=== PATIENT | female | born 1940 | race Caucasian/White ===

== ENCOUNTER 2018-10-12 21:22 | Observation (INO) | payer MEDICARE ==
[2018-10-12] MEDS ORDERED: Nitroglycerin 2% Ointment 1 INCH/1 GM Packet ONE (21:50)
[2018-10-12 22:04] LABS: #Basophils 0.1 thou/uL (0.0-0.2); #Eosinphils 0.2 thou/uL (0.0-0.7); #Lymphocytes 2.7 thou/uL (1.20-3.40); #Monocytes 0.6 thou/uL (0.11-0.59); #Neutrophils 4.5 thou/uL (1.40-6.50); %Basophils 1.7 % (0.0-1.0); %Lymphocytes 33.1 % (21.0-51.0); %Monocytes 7.9 % (0.0-10.0); %Neutrophils 55.4 % (42.0-75.0); Hemoglobin 15.1 g/dL (12.0-16.0); Mean Corpuscular HGB CONC 33.2 g/dL (32.0-36.0); Mean Corpuscular Hemoglobin 31.8 pg (27.0-31.0); Mean Corpuscular Volume 95.9 fL (78.0-98.0); Mean Platelet Volume 6.5 fL (7.4-10.4); Platelet Count 178 thou/uL (130-400); RBC Distribution Width 12.1 % (11.5-14.5); Red Blood Cell (RBC) Count 4.75 mill/uL (4.20-5.40); White Blood Cell (WBC) Count 8.2 thou/uL (4.8-10.8)
--- NOTE | 2018-10-12 22:17 | RAD ---
RADIOGRAPH CHEST 1 VIEW: 10/12/18 HISTORY: 78-year-old female with acute chest pain. FINDINGS: The thoracic aorta is tortuous and ectatic. There is no evidence of air space density, pneumothorax, or pulmonary edema. The lateral costophrenic angles are sharp. There is no cardiomegaly. IMPRESSION: 1) No acute pulmonary findings. 2) Ectasia of thoracic aorta. miya [] POS: ORLY
[2018-10-12 22:23] LABS: CKMB 0.9 ng/mL (0-6.6)
[2018-10-12 22:53] LABS: Carbon Dioxide 25 mmol/L (23-31); Chloride 107 mmol/L (98-107); Potassium 3.7 mmol/L (3.5-5.1); Sodium 142 mmol/L (136-145)
[2018-10-12 22:54] LABS: Anion Gap 14 mmol/L (10-20); BUN (Urea Nitrogen) 15 mg/dL (9.8-20.1); Calc. Creatinine Clearance 0 mL/min (70-130)
[2018-10-12 22:55] LABS: ALT (SGPT) 15 U/L (8-55); AST (SGOT) 15 U/L (5-34); Albumin 4.2 g/dL (3.4-4.8); Alkaline Phosphatase 62 U/L (40-150); Bilirubin, Total 0.7 mg/dL (0.2-1.2); Calcium 9.2 mg/dL (7.8-10.44); Estimated GFR-MDRD 61; Globulin 2.8 g/dL (2.4-3.5); Glucose 97 mg/dL (83-110)
[2018-10-13 01:42] LABS: Troponin I Less than 0.010 ng/mL (< 0.028)
[2018-10-13 04:35] LABS: Troponin I 0.015 ng/mL (< 0.028)
[2018-10-13] MEDS ORDERED: Ondansetron PF 4 MG/2 ML Vial IVP PRN (09:41)
[2018-10-13] MEDS ORDERED: Ondansetron ODT 4 MG TAB PO PRN (09:41)
[2018-10-13 13:13] VITALS: BMI 25.6
[2018-10-13 17:13] LABS: Bilirubin Negative (Negative); Blood, Urine Negative (Negative); Clarity CLEAR (Clear); Glucose, Urine (Dipstick) Negative (Negative); Leukocyte Small (Negative); Nitrite Negative (Negative); Protein, Urine (Dipstick) Negative (Neg-Trace); Specific Gravity, Urine 1.009 (1.002-1.036); Urobilinogen 0.2 mg/dL (0.2-1.0); pH, Urine 6.5 (5.0-9.0)
[2018-10-13 17:18] LABS: Bacteria/HPF None Seen HPF (None Seen); Hyaline Casts/LPF 0-3 HYALINE CAST LPF (0-3 Hyaline); RBC/HPF 0-3 HPF (0-3); Squamous Epithelial 0-3 HPF (0-3); WBC/HPF 0-3 HPF (0-3)
[2018-10-13 17:20] LABS: Urine Culture Reflex Yes Yes
--- NOTE | 2018-10-13 18:11 | PDOC.EVN ---
Event Note - Event Note Event Note: Chart reviewed. Pt seen with Josee Guzman. Pt denies chest pain. S1, S2 Lungs CTA A/P: 1. Chest pain: w/u in progress
--- NOTE | 2018-10-13 18:37 | HP ---
CHIEF COMPLAINT: Chest pain. HISTORY OF PRESENT ILLNESS: This is a very pleasant 78-year-old woman with a background history of hyperlipidemia, hypertension, and mild dementia, who presents with complaints of chest pain that started yesterday at approximately 4:00 p.m. on her left side. The patient does not recall having the episode of chest pain due to her dementia and memory problems, but according to her , the pain was mild. It remained constant and at approximately 8:00 p.m., she began to complain of pain radiating up the left side of her neck. She has not had any recent injuries or falls. Denies having any associated shortness of breath or diaphoresis. No nausea or vomiting. She was brought to the ED and had no further pain since her arrival. The patient underwent an ECG that showed sinus taran with a heart rate of 55 as well as a first-degree AV block with T-waves in lead 3. A chest x-ray was done showing no acute abnormalities, however, ectasia of the aorta was noted. Laboratory studies included serial troponins, all of which were negative. The patient states she has not had pain like this before. She has no history of previous DC or coronary artery disease. She is not known to have any arrhythmias. REVIEW OF SYSTEMS: The patient denies having any recent changes with her appetite or weight loss. She denies having any fevers, chills, or sweats. Denies having any shortness of breath, cough, or hemoptysis. No abdominal pain or cramping. Reports having normal bowel movements without any diarrhea, constipation, melena, or hematochezia. Denies having any urinary symptoms such as dysuria, hematuria, or urinary frequency. All other review of systems is negative. PAST MEDICAL HISTORY: 1. Hypertension. 2. Hyperlipidemia. 3. Previous history of colon cancer, status post resection. 4. Dementia. SOCIAL HISTORY: The patient lives with her . Denies any alcohol use, drug use, or smoking history. ALLERGIES: NO KNOWN DRUG ALLERGIES. CURRENT MEDICATIONS: 1. Losartan 25 mg p.o. daily. 2. Simvastatin 5 mg p.o. daily. 3. Amlodipine 2.5 mg p.o. daily. PHYSICAL EXAMINATION: GENERAL: The patient appears well developed, well nourished. She is in no acute distress. She is found resting comfortably. VITAL SIGNS: Temperature 97.8, blood pressure 127/81, pulse 65, respirations 16, and O2 saturation 95% on room air. HEENT: Normocephalic and atraumatic. Pupils are equal, round, reactive to light. Scleral icterus. Oropharynx is clear. NECK: Supple. No lymphadenopathy. LUNGS: Clear to auscultation bilaterally without wheezes, rales, or rhonchi. CARDIAC: Regular rate and rhythm without audible murmurs, rubs, or gallops. ABDOMEN: Soft, nontender, and nondistended. Normoactive bowel sounds present. EXTREMITIES: No clubbing, cyanosis, or edema. NEUROLOGIC: Alert and oriented x3. SKIN: Without rash or jaundice. LABORATORY DATA: Full blood count normal. Platelets 178. Sodium 142. Potassium 3.7. BUN 15. Creatinine 0.89. GFR 61. LFTs unremarkable. CK-MB 0.9. Troponin 1 negative x3. BNP 28.6. IMAGING DATA: On chest x-ray, 10/12/2018. No acute pulmonary findings. Ectasia of aorta present. IMPRESSION AND PLAN: The patient will be admitted to the observation unit for chest pain, rule out. 1. Chest pain. Resolved. Serial TnI's negative. The patient will have a stress test. ECG did show sinus taran with a heart rate of 55 in first-degree AV block. 2. Hyperlipidemia. Resume home medications. 3. Hypertension. Resume home medications and monitor blood pressure. 4. Diet. N.p.o. at midnight in preparation for stress test. 5. Venous thromboembolism prophylaxis. 6. Gastrointestinal prophylaxis. The patient's case to be discussed with Dr. Diamond for further recommendations. Job ID: [id number]
[2018-10-13] MEDS: Famotidine 20 MG TAB PO SCH (20:49)
[2018-10-14 06:42] LABS: #Basophils 0.1 thou/uL (0.0-0.2); #Eosinphils 0.2 thou/uL (0.0-0.7); #Lymphocytes 2.1 thou/uL (1.20-3.40); #Monocytes 0.5 thou/uL (0.11-0.59); #Neutrophils 3.9 thou/uL (1.40-6.50); %Basophils 0.9 % (0.0-1.0); %Eosinophils 2.3 % (0.0-10.0); %Lymphocytes 31.7 % (21.0-51.0); %Monocytes 7.3 % (0.0-10.0); %Neutrophils 57.7 % (42.0-75.0); Hemoglobin 14.4 g/dL (12.0-16.0); Mean Corpuscular HGB CONC 32.8 g/dL (32.0-36.0); Mean Corpuscular Hemoglobin 31.6 pg (27.0-31.0); Mean Corpuscular Volume 96.4 fL (78.0-98.0); Mean Platelet Volume 7.7 fL (7.4-10.4); Platelet Count 179 thou/uL (130-400); RBC Distribution Width 11.8 % (11.5-14.5); Red Blood Cell (RBC) Count 4.56 mill/uL (4.20-5.40); White Blood Cell (WBC) Count 6.7 thou/uL (4.8-10.8)
[2018-10-14 06:58] LABS: ALT (SGPT) 13 U/L (8-55); AST (SGOT) 14 U/L (5-34); Albumin 3.8 g/dL (3.4-4.8); Alkaline Phosphatase 62 U/L (40-150); Anion Gap 10 mmol/L (10-20); BUN (Urea Nitrogen) 14 mg/dL (9.8-20.1); Bilirubin, Total 0.8 mg/dL (0.2-1.2); Calc. Creatinine Clearance 61 mL/min (70-130); Calcium 9.2 mg/dL (7.8-10.44); Carbon Dioxide 29 mmol/L (23-31); Chloride 108 mmol/L (98-107); Estimated GFR-MDRD 60; Globulin 2.6 g/dL (2.4-3.5); Glucose 85 mg/dL (83-110); Potassium 3.7 mmol/L (3.5-5.1); Protein, Total 6.4 g/dL (6.0-8.3); Sodium 143 mmol/L (136-145)
--- NOTE | 2018-10-14 08:57 | PDOC.PN ---
- Subjective Encounter Start Date: 10/14/18 Encounter Start Time: 08:55 Subjective: Patient feeling well and without any complaints. Afebrile. -: No n/v/abdo pain. No CP/SOB or orthopnea. No CAMEJO. -: Denies any changes with bowels or urinary symptoms. - Objective Vital Signs & Weight: Vital Signs (12 hours) Temp Pulse Resp BP Pulse Ox 10/14/18 07:12 98 F 63 18 136/78 94 L 10/14/18 04:51 98 F 66 16 161/80 H 92 L Weight Weight 168 lb 6.4 oz I&O: 10/13/18 10/14/18 10/15/18 06:59 06:59 06:59 Intake Total 815 Balance 815 Result Diagrams: 10/14/18 05:07 10/14/18 05:07 Phys Exam - Physical Examination Constitutional: NAD HEENT: PERRLA, moist MMs, oral pharynx no lesions Neck: supple, full ROM Respiratory: no wheezing, no rales, no rhonchi, clear to auscultation bilateral Cardiovascular: RRR Gastrointestinal: soft, non-tender, no distention, positive bowel sounds Musculoskeletal: no edema, pulses present Neurological: non-focal, normal sensation, moves all 4 limbs Psychiatric: normal affect, A&O x 3 Skin: no rash, normal turgor Dx/Plan (1) Chest pain Code(s): R07.9 - CHEST PAIN, UNSPECIFIED Status: Resolved (2) Hyperlipidemia Code(s): E78.5 - HYPERLIPIDEMIA, UNSPECIFIED Status: Chronic (3) Hypertension Code(s): I10 - ESSENTIAL (PRIMARY) HYPERTENSION Status: Chronic Qualifiers: Hypertension type: essential hypertension Qualified Code(s): I10 - Essential (primary) hypertension - Plan cont current plan of care, DVT proph w/lovenox TNI x 3 negative. BNP 28.6. -: Awaiting Pharm Stress test. -: UA: small WBC, UCx pending. * .
[2018-10-14] MEDS: Enoxaparin Sodium 30 MG/0.3 ML SYRINGE SC SCH (09:00)
[2018-10-14] MEDS: Famotidine 20 MG TAB PO SCH ×2 (09:00→20:08)
[2018-10-14] MEDS ORDERED: ADENOSINE 60 MG/20 ML VIAL ONE (09:24)
--- NOTE | 2018-10-14 14:18 | NM ---
NUCLEAR MEDICINE CARDIAC MYOCARDIAL PERFUSION SPECT EJECTION FRACTION STUDY WALL MOTION CINE: DATE: 10/14/2018. HISTORY: A 78-year-old hypertensive female with dyslipidemia who presents with chest pain. TECHNIQUE: Number of days: 1. Rest study: Tc99m sestamibi (Cardiolite) dose: 10.0 mCi. Pharmacologic stress: adenosine dose: 42.7 mg. Stress study: Tc99m sestamibi (Cardiolite) dose: 28.5 mCi. FINDINGS: CARDIAC (MYOCARDIAL PERFUSION) SPECT There is a small, fixed perfusion defect at the anteroseptal region near the apex. There is another small focal fixed defect at the inferolateral wall located more posteriorly. No reversible perfusion defect is identified. EJECTION FRACTION STUDY EF = 83%. WALL MOTION CINE Normal. IMPRESSION: 1. No reversible ischemia identified. 2. Small fixed perfusion defects at anteroseptal and inferolateral montgomery, which may represent small infarction/scars. YURIY Dorantes POS: ORLY
[2018-10-14] MEDS: Acetaminophen 325 MG TAB PO PRN ×2 (15:28→19:15)
[2018-10-14 16:03] LABS: Troponin I Less than 0.010 ng/mL (< 0.028)
[2018-10-14 18:53] LABS: Troponin I Less than 0.010 ng/mL (< 0.028)
[2018-10-14] MEDS ORDERED: Simvastatin 5 MG TAB PO SCH (21:00)
[2018-10-14 21:47] LABS: Troponin I Less than 0.010 ng/mL (< 0.028)
[2018-10-15 04:54] LABS: #Eosinphils 0.2 thou/uL (0.0-0.7); #Lymphocytes 2.1 thou/uL (1.20-3.40); #Monocytes 0.5 thou/uL (0.11-0.59); #Neutrophils 3.3 thou/uL (1.40-6.50); %Basophils 0.7 % (0.0-1.0); %Eosinophils 2.8 % (0.0-10.0); %Lymphocytes 34.4 % (21.0-51.0); %Monocytes 8.2 % (0.0-10.0); %Neutrophils 53.9 % (42.0-75.0); Hemoglobin 14.3 g/dL (12.0-16.0); Mean Corpuscular HGB CONC 33.6 g/dL (32.0-36.0); Mean Corpuscular Hemoglobin 33.3 pg (27.0-31.0); Mean Corpuscular Volume 99.1 fL (78.0-98.0); Mean Platelet Volume 7.2 fL (7.4-10.4); Platelet Count 171 thou/uL (130-400); RBC Distribution Width 11.7 % (11.5-14.5); White Blood Cell (WBC) Count 6.1 thou/uL (4.8-10.8)
[2018-10-15 05:18] LABS: ALT (SGPT) 12 U/L (8-55); AST (SGOT) 15 U/L (5-34); Albumin 3.7 g/dL (3.4-4.8); Alkaline Phosphatase 57 U/L (40-150); Anion Gap 12 mmol/L (10-20); BUN (Urea Nitrogen) 20 mg/dL (9.8-20.1); Bilirubin, Total 0.3 mg/dL (0.2-1.2); Calc. Creatinine Clearance 55 mL/min (70-130); Calcium 8.8 mg/dL (7.8-10.44); Carbon Dioxide 26 mmol/L (23-31); Chloride 109 mmol/L (98-107); Estimated GFR-MDRD 53; Globulin 2.4 g/dL (2.4-3.5); Glucose 107 mg/dL (83-110); Potassium 4.3 mmol/L (3.5-5.1); Protein, Total 6.1 g/dL (6.0-8.3); Sodium 143 mmol/L (136-145)
[2018-10-15] MEDS ORDERED: BORON PO SCH (09:00)
[2018-10-15] MEDS ORDERED: [UNRECOGNIZED DRUG - OTHER] PO SCH (09:00)
[2018-10-15] MEDS ORDERED: MSM PO SCH (09:00)
[2018-10-15] MEDS ORDERED: (Turmeric Root Extract [Turmeric Curcumin] 500 MG) PO SCH (09:00)
[2018-10-15] MEDS ORDERED: Vit A,C & E/Lutein/Minerals Tablet PO SCH (09:00)
[2018-10-15] MEDS ORDERED: Fish Oil 1,000 MG CAP PO SCH (09:00)
[2018-10-15] MEDS ORDERED: GLUC PO SCH (09:00)
[2018-10-15] MEDS ORDERED: Loratadine 10 MG TAB PO SCH (09:00)
[2018-10-15] MEDS ORDERED: Multivitamin W/ Minerals 1 TAB PO SCH (09:00)
[2018-10-15] MEDS ORDERED: Amlodipine 5 MG TAB PO SCH ×2 (09:00→10:13)
[2018-10-15] MEDS ORDERED: Losartan 25 MG TAB PO SCH (09:00)
[2018-10-15] MEDS ORDERED: Donepezil HCl 10 MG TAB PO SCH (09:00)
[2018-10-15] MEDS: Enoxaparin Sodium 30 MG/0.3 ML SYRINGE SC SCH (09:13)
[2018-10-15] MEDS: Famotidine 20 MG TAB PO SCH (09:14)
[2018-10-15] MEDS ORDERED: Amlodipine 10 MG TAB PO SCH (10:15)
[2018-10-15 12:45] VITALS: BP 148/77; TEMP 98.3
--- NOTE | 2018-10-15 14:50 | PDOC.EVN ---
Event Note - Event Note Event Note: Reviewed with Cynthia Guzman. Met with patient and her . She is doing fine. She does not recall the cardiology visit. attrib to her dementia. Heart RRR, Lungs CTAB. Abd benign. Had initial evidence of scar on stress test. Echo was normal and cardiology ok with discharge. Will discharge to home for outpatient follow-up.
--- NOTE | 2018-10-15 15:46 | DIS ---
DATE OF ADMISSION: 10/12/2018 DATE OF DISCHARGE: 10/15/2018 CONSULT PHYSICIANS: Dr. Dave, Cardiology. DISCHARGE DIAGNOSES: 1. Atypical chest pain. 2. Hypertension. 3. Hyperlipidemia. HOSPITAL COURSE: Mrs. Jane is a very pleasant 78-year-old woman, who presented to the ED with complaints of left chest/shoulder pain radiating up into the left side of the neck. The pain was immediately gone upon presentation to the ED. She has underlying dementia and did not recall having the episode of chest pain. She was admitted for cardiac investigations and underwent laboratory studies including serial troponins, which were all negative. She had a normal full blood count and unremarkable chemistries as well as liver function studies. She underwent a chest x-ray while in the ED, which was unremarkable. She had a stress test done that showed no reversible ischemia; however, she was noted to have small fixed perfusion defect at the anteroseptal and inferolateral montgomery, representing small infarction or scars. Following the stress test, the patient began to experience recurrent pain in the left shoulder and the neck. When asked to rate the pain in terms of severity, the patient stated it was barely noticeable; however, it remained intermittent for a few minutes. It did not seem to worsen with any movement. It was also not reproducible with palpation on exam. The pain settled on its own and she had no further chest pain throughout the rest of her admission. Cardiology consult was requested, and further investigations were done with an echo. The echo showed 50% to 55% ejection fraction with a normal size left atrium and normal size left ventricle. There were mild mitral regurgitation and mild aortic regurgitation. The patient was seen by Dr. Dave and given normal investigations, was cleared for discharge home with instructions to increase amlodipine from 5 mg p.o. daily to 10 mg p.o. daily given the raised blood pressure despite her baseline dose of amlodipine. REVIEW OF SYSTEMS: The patient feels very well and has been tolerating oral intake without any difficulties. No recurrent pain. No chest pain. No leg swelling or pain. She has not had any shortness of breath, cough, or hemoptysis. Remains afebrile. Denies having any headaches or dizziness. She has been mobilizing without any difficulties. All other review of systems negative. PHYSICAL EXAMINATION: VITAL SIGNS: Temperature 98.3, pulse 63, respirations 16, O2 saturation 93% on room air, blood pressure 148/77. HEENT: Normocephalic and atraumatic. Pupils are equal, round, reactive to light. Sclerae are anicteric. Oropharynx is clear. NECK: Supple without lymphadenopathy. Full range of motion. No tenderness with palpation of the cervical spine or neck muscles. CARDIAC: Regular rate and rhythm without audible murmurs, rubs, or gallops. LUNGS: Clear to auscultation bilaterally. ABDOMEN: Soft, nontender, nondistended. Normoactive bowel sounds present. EXTREMITIES: Full range of motion, no swelling or edema in lower legs. Right shoulder, full range of motion and no tenderness on palpation of the entire shoulder joint on the left side. LABORATORY DATA: White blood count 6.1, hemoglobin 14.3, hematocrit 42.6, platelets 171. Electrolytes unremarkable. BUN 20, creatinine 1, eGFR 53. LFTs unremarkable. Serial troponins repeated on 10/14/2018, negative. Initial serial troponins following initial presentation also negative. IMAGING DATA: 1. Chest x-ray on 10/12/2018, thoracic aorta is tortuous and ectatic. No acute pulmonary findings. No cardiomegaly. 2. Stress test on 10/13/2018, no reversible ischemia identified. Small fixed perfusion defects at anteroseptal and inferolateral montgomery, may represent small infarction/scars. 3. Echo done on 10/12/2018, ejection fraction 50% to 55%, normal-sized left atrium and left ventricle, mild mitral regurgitation present, mild aortic regurgitation also present. PROCEDURES: None. DISCHARGE MEDICATIONS: 1. Prescription provided for amlodipine which was increased from 5 mg p.o. daily to 10 mg p.o. daily. 2. The patient advised to continue daily aspirin and simvastatin 10 mg p.o. at bedtime. She was advised resume all other normal home medications. CONDITION AT DISCHARGE: Stable. DIET: Heart healthy. ACTIVITY: As tolerated. FOLLOWUP: The patient will follow up with her primary care physician early next week, Dr. Mitchell. She wishes to be seen by her 's die maker trim, Dr. Lawrence and her will call to make an appointment for her early next week. The patient's case was discussed with Dr. Good, who has seen patient prior to discharge. He was in agreement with the plan of care as described above. Job ID: [id number] [facility]
[2018-10-16] MEDS ORDERED: Amlodipine 10 MG TAB PO SCH (09:00)
--- NOTE | 2018-10-22 22:02 | EKG ---
Test Reason : LEFT SHOLDER PAIN Blood Pressure : / mmHG Vent. Rate : 055 BPM Atrial Rate : 055 BPM P-R Int : 218 ms QRS Dur : 090 ms QT Int : 394 ms P-R-T Axes : 026 000 000 degrees QTc Int : 376 ms Sinus bradycardia with 1st degree A-V block Inverted T waves III Confirmed by RAMIREZ BERNAL, KATE ([id number]), newspaper editor managing ANTON AVILA ([id number]) on 10/22/2018 10:02:05 PM Referred By: Confirmed By:KATE GUZMÁN MD
== END 2018-10-15 14:15 | disposition home or self-care (01) ==
LOC: SCSER 21:22 → ERHOLD 23:15 → 2SW 10-13 03:15
PROVIDERS: ADMIT Hospitalist; ATTEND Hospitalist
DX: R07.89 Other chest pain (principal); I10 Essential (primary) hypertension; E78.5 Hyperlipidemia, unspecified; F03.90 Unspecified dementia, unspecified severity, without behavioral disturbance, psychotic disturbance, mood disturbance, and anxiety; I08.0 Rheumatic disorders of both mitral and aortic valves; Z85.038 Personal history of other malignant neoplasm of large intestine; Z79.82 Long term (current) use of aspirin; Z79.899 Other long term (current) drug therapy
CPT/HCPCS: 71045; 78452; 80053 ×3; 81001; 82553; 83880; 84484 ×5; 85025 ×3; 87086; 93005; 93017; 93306; 96372 ×2; 99285; A9500; G0378 ×5; 36415; J0153; J1650